=== PATIENT | male | born 1930 | race Caucasian/White ===

== ENCOUNTER 2019-07-27 12:42 | Inpatient (IN) | payer MEDICARE, OTHER ==
[~2019-07-27] VITALS: Ht 167.6 cm; Wt 58.5 kg
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
[2019-07-27] MEDS ORDERED: IV NS 0.9% 1,000 ML BAG IV ONE (13:00)
--- NOTE | 2019-07-27 13:20 | NUR ---
PT TAKEN TO RADIOLOGY VIA [facility]
[2019-07-27 13:21] LABS: HEMATOCRIT 34 % (39-51); HEMOGLOBIN 11.8 g/dL (13.5-17.5); RED BLOOD CELL COUNT(AUTO) 3.69 MIL/uL (4.5-6.0); WHITE BLOOD COUNT (AUTO) 7.8 K/uL (4.3-11.0)
[2019-07-27 13:22] LABS: LYMPHOCYTES % (AUTO) 4.7 % (20.0-44.0); MEAN CORPUSCULAR HGB CONC 34 g/dl (31.0-36.0); MEAN CORPUSCULAR VOLUME 93 fL (80-96); NEUTROPHILS % (AUTO) 85.2 % (43.0-81.0); PLATELET COUNT (AUTO) 95 /CMM (150-450)
[2019-07-27 13:23] LABS: BASOPHILS % (AUTO) 0.1 % (0.0-2.0); EOSINOPHILS % (AUTO) 0.1 % (0.0-6.0); MONOCYTES % (AUTO) 9.9 % (2.0-12.0)
[2019-07-27 13:28] LABS: CALCIUM, SERUM 9.2 mg/dL (8.5-10.1); CARBON DIOXIDE 24 mmol/L (21-32); CHLORIDE 106 mmol/L (98-107); CREATININE 1.8 mg/dL (0.6-1.3); GLUCOSE 103 mg/dL (74-106); POTASSIUM 4.1 mmol/L (3.5-5.1); SODIUM SERUM 141 mmol/L (136-145); UREA NITROGEN, BLOOD 40 mg/dL (7-18)
[2019-07-27 13:32] LABS: ALANINE AMINOTRANSFERASE 6 U/L (12-78); ALBUMIN 3.5 g/dL (3.4-5.0); ALKALINE PHOSPHATASE 63 U/L (46-116); ASPARTATE AMINOTRANSFERASE 15 U/L (15-37); BILIRUBIN,DIRECT 0.3 mg/dL (0.0-0.2); TOTAL PROTEIN, SERUM 6.4 g/dL (6.4-8.2)
[2019-07-27] MEDS ORDERED: MULT-447 PO (13:35)
[2019-07-27] MEDS ORDERED: ASPI-605 PO (13:35)
[2019-07-27 14:02] LABS: LYMPHOCYTES % (MANUAL) 3 % (16-48); MONOCYTES % (MANUAL) 9 % (0-11.0); NEUTROPHILS % (MANUAL) 88 (42-76)
--- NOTE | 2019-07-27 14:09 | NUR ---
CALLED FOR TELE BED
--- NOTE | 2019-07-27 14:30 | NUR ---
PT ATTEMPTED TO USE URINAL TO PROVIDE SPECIMEN, BUT UNSUCCESSFUL.
--- NOTE | 2019-07-27 15:20 | NUR ---
REPORT GIVEN TO JANET OTERO FOR 327-2 TELE
[2019-07-27 16:00] VITALS: BP 104/53
--- NOTE | 2019-07-27 16:00 | NUR ---
[facility]
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
--- NOTE | 2019-07-27 16:17 | NUR ---
DIRECTOR CARDIOVASCULAR NOTE INFORMED DR KING, ADMITTING HOSPITALIST THAT PT HAS ARRIVED AND PENDING ADMISSION ORDERS, AWAITING RESPONSE.
--- NOTE | 2019-07-27 17:03 | NUR ---
SALES PORTER NOTE PT REPORT THAT HE LIVES IN A 4 UNIT APARTMENT COMPLEX ALONE LOCATED AT [address] [facility] [place] [facility], HE STATES THAT HE DOES NOT HAVE ANY ROOM MATES OR PEOPLE THAT HE LIVES WITH. HE STATES HE HAS CHILDREN BUT THEY DO NOT LIVE IN [place] AND THAT ONE OF HIS CHILDREN RECENTLY . HE STATES HE DOES NOT KNOW THE PHONE NUMBER OF ANY FRIENDS OR FAMILY, HE DOES NOT HAVE A CELL PHONE, AND DOES NOT HAVE ANY PHONE NUMBER WRITTEN DOWN IN HIS BELONGINGS. SOCIAL SERVICE CONSULT ORDERED FOR FOLLOW UP.
--- NOTE | 2019-07-27 17:37 | NUR ---
MANAGER TRANSPORTATION PLANNING NOTE PT REFUSING FULL SKIN ASSESSMENT AT THIS TIME. ALLOWED THE NURSE TO VIEW ALL 4 EXTREMITIES AND UPPER TORSO, STATES "I DON'T HAVE ANY RASHES OR ANYTHING WRONG WITH ME". EDUCATION PROVIDED, PT STILL REFUSED FULL SKIN ASSESSMENT AT THIS TIME.
[2019-07-27] MEDS: IV NS 0.9% 1,000 ML IV PRN (17:57)
[2019-07-27] MEDS ORDERED: ONDANSETRON HCL/PF 4 MG/2 ML VIAL IVP PRN (18:00)
[2019-07-27] MEDS ORDERED: Z GUARD REMEDY 2 OZ OINT TP PRN (18:00)
[2019-07-27] MEDS ORDERED: ZOLPIDEM TARTRATE 5 MG TABLET PO PRN (18:00)
[2019-07-27] MEDS ORDERED: HYDROCODONE/APAP 5/325MG 1 EACH TABLET PO PRN (18:00)
[2019-07-27] MEDS ORDERED: MAG HYDROX/AL HYDROX/SIMETH 30 ML UDC PO PRN (18:00)
[2019-07-27] MEDS ORDERED: MAGNESIUM HYDROXIDE 30 ML UDC PO PRN (18:00)
[2019-07-27] MEDS ORDERED: ACETAMINOPHEN 325 MG TABLET PO PRN (18:00)
--- NOTE | 2019-07-27 18:28 | NUR ---
STOCK SHIPPER CLOSING NOTE PT IN BED, EATING DINNER, ALERT AND ORIENTED X1-2. DENIES CHEST PAIN, SOB, N/V, BREATHING IS EVEN AND UNLABORED ON 3L NC. PT ON WASH DRILLER WITH V PACING, HR 60'S. RIGHT AC #18G IS INFUSING NS @ 75ML/HR WITHOUT REDNESS OR SWELLING. ALL NEEDS ATTENDED TO. ASPIRATION PRECAUTIONS MAINTAINED. PT CONTINUES TO REFUSE FULL SKIN ASSESSMENT. BED IS LOCKED AND IN LOWEST POSITION, SIDE RAILS UP X2, BED ALARM ON, CALL LIGHT AND POSSESSIONS WITHIN REACH. WILL ENDORSE TO PROJECT MANAGER INTERIOR DESIGN NURSE FOR CONTINUITY OF CARE.
[2019-07-27] MEDS ORDERED: Z GUARD REMEDY 4 OZ OINT TP PRN (18:30)
--- NOTE | 2019-07-27 19:30 | NUR ---
RECEIVED PATIENT IN BED AWAKE. AO X 3, ABLE TO MAKE NEEDS KNOWN. NO ACUTE DISTRESS NOTED. DENIES ANY PAIN AT THIS TIME. IV SITE PATENT, INTACT; IVF INFUSING ORDERED. SAFETY REMINDERS GIVEN. ON LOW BED WITH BILATERAL UPPER SIDE RAILS UP. CALL RICHEY WITHIN EASY REACH. WILL CONTINUE TO MONITOR. Addendum: 07/28/19 at 0512 by ALICIA BUCHANAN RN TELE READING V PACING HR 70
[2019-07-27 20:00] VITALS: BP_SYST 146; BP_DIAS 70; BP_DIAS 73
[2019-07-28] VITALS: BP 105/60
[2019-07-28 04:00] VITALS: BP 113/56
--- NOTE | 2019-07-28 06:00 | NUR ---
PATIENT ASLEEP, EASILY AROUSABLE. RESPIRATIONS EVEN. NO SIGNS OF PAIN NOTED. IVF INFUSING ORDERED. NEEDS ATTENDED. SAFETY PRECAUTIONS AND COMFORT MEASURES IN PLACE. WILL GIVE REPORT TO DAY SHIFT FOR CONTINUITY OF CARE.
[2019-07-28 07:41] LABS: BASOPHILS % (AUTO) 0.1 % (0.0-2.0); EOSINOPHILS % (AUTO) 0.4 % (0.0-6.0); HEMATOCRIT 33 % (39-51); HEMOGLOBIN 11.4 g/dL (13.5-17.5); LYMPHOCYTES % (AUTO) 14.5 % (20.0-44.0); MEAN CORPUSCULAR HGB CONC 35 g/dl (31.0-36.0); MEAN CORPUSCULAR VOLUME 92 fL (80-96); MONOCYTES # (AUTO) 0.9 /CMM (0.1-1.30); MONOCYTES % (AUTO) 13.3 % (2.0-12.0); NEUTROPHILS # (AUTO) 4.8 /CMM (1.8-8.9); NEUTROPHILS % (AUTO) 71.7 % (43.0-81.0); PLATELET COUNT (AUTO) 86 /CMM (150-450); RED BLOOD CELL COUNT(AUTO) 3.54 MIL/uL (4.5-6.0); WHITE BLOOD COUNT (AUTO) 6.6 K/uL (4.3-11.0)
[2019-07-28 07:51] VITALS: BP 110/50
[2019-07-28 07:51] LABS: CALCIUM, SERUM 8.2 mg/dL (8.5-10.1); CARBON DIOXIDE 25 mmol/L (21-32); CHLORIDE 106 mmol/L (98-107); CREATININE 1.4 mg/dL (0.6-1.3); GLUCOSE 103 mg/dL (74-106); MAGNESIUM 2.1 mg/dL (1.8-2.4); PHOSPHORUS 2.5 mg/dL (2.5-4.9); SODIUM SERUM 139 mmol/L (136-145); UREA NITROGEN, BLOOD 36 mg/dL (7-18)
[2019-07-28 08:00] VITALS: BP 110/50
--- NOTE | 2019-07-28 08:10 | NUR ---
MS RN RECEIVED ON BED,AWAKE,ALERT,ORIENTED X1, CONFUSE NOT IN ANY FORM OF DISTRESS, RESPIRATIONS EVEN AND UNLABORED,NO SOB NOTED, LUNGS ARE DIMINISH, ABDOMEN SOFT,POSITIVE BOWEL SOUNDS, DENIES PAIN AT THIS TIME,ALL NEEDS ATTENDED.
--- NOTE | 2019-07-28 09:00 | NUR ---
MS GONZALES BREAKFAST SERVED,DUE MEDS GIVEN,TOLERATED WELL.
--- NOTE | 2019-07-28 09:00 | NUR ---
MS JANET WAS SEEN BY BETTY Ch/ ORDERS MADE AND CARRIED OUT.
[2019-07-28] MEDS: MULTIVIT W/MINERALS 1 TAB TABLET PO SCH (09:43)
[2019-07-28] MEDS: ASPIRIN EC 81 MG TABLET.DR PO SCH (09:43)
[2019-07-28 09:50] LABS: BAND % (MANUAL) 2 % (0.0-5.0); LYMPHOCYTES % (MANUAL) 13 % (16-48); MONOCYTES % (MANUAL) 14 % (0-11.0); NEUTROPHILS % (MANUAL) 71 (42-76)
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
--- NOTE | 2019-07-28 15:00 | NUR ---
MS RN ON BED, SLEEPING.
[2019-07-28 16:00] VITALS: BP 151/91
--- NOTE | 2019-07-28 16:30 | NUR ---
MS RN ON BED, VISITOR AT BEDSIDE.
--- NOTE | 2019-07-28 17:52 | NUR ---
MS RN ON BED, NO DISTRESS NOTED,ALL NEEDS ATTENDED.
[2019-07-28 20:00] VITALS: BP 130/67
--- NOTE | 2019-07-28 20:13 | NUR ---
RN OPENING NOTES RECEIVED PATIENT IN BED. AWAKE A/O X3. ON ROOM AIR. NO SIGNS OF RESPIRATORY DISTRESS. DENIES SOB. DENEIS PAIN AT THIS TIME. IV SITE RAC #18 INTACT AND PATENT. SAFETY PRECAUTIONS IMPLEMENTED; CALL LIGHT WITHIN REACH, BED LOWEST POSITION, BED LOCKED, SIDE RAILS UP X2. WILL CONTINUE TO MONITOR.
[2019-07-29] MEDS: IV NS 0.9% 1,000 ML IV PRN ×2 (00:35→15:21)
--- NOTE | 2019-07-29 06:59 | NUR ---
RN CLOSING NOTES PATIENT IS CURRENTLY ASLEEP, EASILY AROUSABLE. AFEBRILE. NO SIGNS OF RESPIRATORY DISTRESS. NO SHORTNESS OF BREATH NOTED. IVF INFUSING ORDERED. ALL NEEDS ATTENDED TO AT THIS TIME. SAFETY PRECAUTIONS IMPLEMENTED; CALL LIGHT WITHIN REACH, BED LOWEST POSITION, BED LOCKED, SIDE RAILS UP X2. WILL ENDORSE TO DAY NURSE FOR CONTINUITY OF CARE.
[2019-07-29 07:24] LABS: BASOPHILS % (AUTO) 0.4 % (0.0-2.0); EOSINOPHILS % (AUTO) 0.3 % (0.0-6.0); HEMATOCRIT 31 % (39-51); HEMOGLOBIN 11.1 g/dL (13.5-17.5); LYMPHOCYTES # (AUTO) 0.6 /CMM (0.8-4.8); LYMPHOCYTES % (AUTO) 10.9 % (20.0-44.0); MEAN CORPUSCULAR HGB CONC 36 g/dl (31.0-36.0); MEAN CORPUSCULAR VOLUME 91 fL (80-96); MONOCYTES # (AUTO) 0.8 /CMM (0.1-1.30); MONOCYTES % (AUTO) 13.4 % (2.0-12.0); NEUTROPHILS # (AUTO) 4.2 /CMM (1.8-8.9); PLATELET COUNT (AUTO) 93 /CMM (150-450); RED BLOOD CELL COUNT(AUTO) 3.44 MIL/uL (4.5-6.0); WHITE BLOOD COUNT (AUTO) 5.6 K/uL (4.3-11.0)
--- NOTE | 2019-07-29 07:30 | NUR ---
RN MS NOTES PT IN BED, AWAKE, ALERT AND ORIENTED, NO COMPLAINT OF PAIN OR ANY DISCOMFORT, RESPIRATIONS NORMAL, SITTER AT BEDSIDE, CALL LIGHT WITHIN REACH, IV FLUIDS INFUSING WELL, NO BEHAVIOR PROBLEM NOTED, ASSISTED WITH BREAKFAST, KEPT COMFORTABLE.
[2019-07-29 07:58] LABS: CALCIUM, SERUM 8.5 mg/dL (8.5-10.1); MAGNESIUM 2.1 mg/dL (1.8-2.4); PHOSPHORUS 2.7 mg/dL (2.5-4.9); POTASSIUM 3.7 mmol/L (3.5-5.1)
[2019-07-29 08:00] VITALS: BP 158/72
[2019-07-29] MEDS: MULTIVIT W/MINERALS 1 TAB TABLET PO SCH (09:12)
[2019-07-29] MEDS: ASPIRIN EC 81 MG TABLET.DR PO SCH (09:12)
[2019-07-29 09:56] LABS: LYMPHOCYTES % (MANUAL) 75 % (16-48); MONOCYTES % (MANUAL) 10 % (0-11.0); NEUTROPHILS % (MANUAL) 75 (42-76)
--- NOTE | 2019-07-29 13:00 | NUR ---
RN MS NOTES PT IN BED, AWAKE, ALERT, WITH EPISODES OF CONFUSION, NO COMPLAINT OF PAIN, NOT IN DISTRESS, SITTER AT BEDSIDE, IV FLUIDS INFUSING WELL, SEEN BY DR. FALL, KEPT CLEAN AND DRY, NEEDS ATTENDED.
[2019-07-29 16:00] VITALS: BP 145/63
[2019-07-29 17:55] LABS: APPEARANCE,URINE CLEAR (CLEAR); BILIRUBIN,URINE NEGATIVE (NEGATIVE); BLOOD, URINE TRACE Ery/uL (NEGATIVE); COLOR,URINE YELLOW (YELLOW); KETONES,URINE NEGATIVE (NEGATIVE); LEUKOCYTE ESTERASE ,URINE NEGATIVE (NEGATIVE); NITRITE, URINE NEGATIVE (NEGATIVE); PROTEIN,URINE 1+ mg/dl (NEGATIVE); UGLUCOSE NEGATIVE (NEGATIVE)
[2019-07-29 18:02] LABS: CREATININE, URINE 87.2 MG/DL (30.0-125.0); URINE TOTAL PROTEIN 67.1 mg/dL (0-11.9)
[2019-07-29 18:36] LABS: BACTERIA,URINE Few /HPF (None Seen); RBC,URINE 0-2 /HPF (0-2); SQUAMOUS EPITHELIAL CELL,UR Few /HPF (None Seen); WBC,URINE 0-2 /HPF (0-3)
[2019-07-29 18:37] LABS: EOSINOPHIL,URINE None Seen
[2019-07-29] MEDS ORDERED: FEE PK DOSING 1 MIN EA MC ONE (19:09)
--- NOTE | 2019-07-29 19:21 | NUR ---
RN MS NOTES PT IN BED, AWAKE, ALERT AND VERBALLY RESPONSIVE, NO COMPLAINT OF PAIN, NOT IN DISTRESS, ABLE TO AMBULATE TO THE BATHROOM WITH ASSISTANCE, IV FLUIDS INFUSING WELL, CALL LIGHT WITHIN REACH, PM CARE PROVIDED, ALL NEEDS ATTENDED.
--- NOTE | 2019-07-29 19:25 | NUR ---
RN MS OPENING NOTE BEDSIDE REPORT RECIEVED FROM MICHAEL GONZALES. PT IN BED, AWAKE, ALERT AND VERBALLY RESPONSIVE, NO COMPLAINT OF PAIN, NOT IN DISTRESS, ABLE TO AMBULATE TO THE BATHROOM WITH ASSISTANCE X 1, IV FLUIDS INFUSING WELL TO RFA#20 WITH NO S/S OF INFILTRATION. , CALL LIGHT WITHIN REACH. NELLY IRWIN AT THE BEDSIDE. PATIENT REORIENTED TO POC AND PLACE. WILL CONT TO MONITOR.
[2019-07-29] MEDS ORDERED: CEFTRIAXONE 1 G in IV D5W 50 ML IV SCH (20:00)
--- NOTE | 2019-07-29 21:00 | NUR ---
FAMILY MEMBER CALLED MELVIN BA PATIENTS SON IN LAW CALLED TO DISCUSS PATIENTS CONDITION. STATES THAT PATIENTS DAUGHTER MANGO BAZAN IS ON VACATION IN [place] FOR THE REST OF THE WEEK HE SAYS HE WILL PASS HER THE INFORMATION SO THAT SHE COULD CALL IN THE AM TO DISCUSS CASE WITH CASE MANAGEMENT. MELVIN BA LIVES IN [place] SO MAY NOT BE ABLE TO ASSIST IN CARE. MELVIN BA PHONE [phone]. MELVIN STATES PATIENT HAS BROTHER, BROTHER SAHIL BAZAN PHONE [phone] WHOM LIVES IN [place] AND MAY BE ABLE TO GET INVOLVED WITH PATIENTS CARE. WILL ENDORSE INFORMATION TO CASE MANAGEMENT SO FOLLOW UP CAN BE DONE TOMORROW.
[2019-07-29] MEDS: VANCOMYCIN 1 GM in IV D5W 250 ML IV SCH (21:56)
--- NOTE | 2019-07-30 06:00 | NUR ---
RN MS CLOSING NOTE PT IN BED, SEEN WITH EYES CLOSED IN NO APPARENT PAIN, OR IN DISTRESS, PATIENT HAD BOUTS OF CONFUSION BUT REORIENTED TO SURROUNDINGS LAS NIGHT AN REDIRECTEDED TO OTHER ACTIVITES TO MAINTAIN COOPERATION. IV FLUIDS INFUSING WELL TO RFA#20 WITH NO S/S OF INFILTRATION. , CALL LIGHT WITHIN REACH. NELLY IRWIN AT THE BEDSIDE.
[2019-07-30 07:11] LABS: BASOPHILS % (AUTO) 0.3 % (0.0-2.0); EOSINOPHILS % (AUTO) 0.5 % (0.0-6.0); HEMATOCRIT 36 % (39-51); HEMOGLOBIN 12.5 g/dL (13.5-17.5); LYMPHOCYTES # (AUTO) 0.7 /CMM (0.8-4.8); LYMPHOCYTES % (AUTO) 14.4 % (20.0-44.0); MEAN CORPUSCULAR HGB CONC 35 g/dl (31.0-36.0); MEAN CORPUSCULAR VOLUME 91 fL (80-96); MONOCYTES # (AUTO) 0.6 /CMM (0.1-1.30); NEUTROPHILS # (AUTO) 3.5 /CMM (1.8-8.9); NEUTROPHILS % (AUTO) 72.8 % (43.0-81.0); PLATELET COUNT (AUTO) 118 /CMM (150-450); RED BLOOD CELL COUNT(AUTO) 3.93 MIL/uL (4.5-6.0); WHITE BLOOD COUNT (AUTO) 4.9 K/uL (4.3-11.0)
--- NOTE | 2019-07-30 07:30 | NUR ---
RN MS NOTES PT IN BED, AWAKE, ALERT AND ORIENTED, NO COMPLAINT OF PAIN, NOT IN DISTRESS, ASSISTED TO BATHROOM NEEDED, SITTER AT BEDSIDE, IV FLUIDS INFUSING WELL, SAFETY PRECAUTIONS OBSERVED, NEEDS ATTENDED.
[2019-07-30 07:31] LABS: ALBUMIN 2.8 g/dL (3.4-5.0); BILIRUBIN,TOTAL 0.4 mg/dL (0.2-1.0); CALCIUM, SERUM 8.6 mg/dL (8.5-10.1); CREATININE 1.2 mg/dL (0.6-1.3); MAGNESIUM 2.1 mg/dL (1.8-2.4); POTASSIUM 3.7 mmol/L (3.5-5.1); TOTAL PROTEIN, SERUM 6.1 g/dL (6.4-8.2)
[2019-07-30] MEDS: MULTIVIT W/MINERALS 1 TAB TABLET PO SCH (09:12)
[2019-07-30] MEDS: ASPIRIN EC 81 MG TABLET.DR PO SCH (09:12)
[2019-07-30] MEDS ORDERED: LEVO500T75 PO (09:32)
--- NOTE | 2019-07-30 13:00 | NUR ---
RN MS NOTES PT IN BED, AWAKE, ALERT, WITH PERIODS OF CONFUSION, REORIENTED NECESSARY, SEEN AND EXAMINED BY DR. FALL, PLAN OF CARE DISCUSSED WITH PT AND FAMILY, VERBALIZED UNDERSTANDING, BED ALARM ON, ASSISTED PT TO BATHROOM NEEDED.
[2019-07-30] MEDS: VANCOMYCIN 1 GM in IV D5W 250 ML IV SCH (15:00)
[2019-07-30] MEDS ORDERED: LACTOBACILLUS RHAMNOSUS GG 1 EACH CAP.SPRINK PO SCH (17:00)
--- NOTE | 2019-07-30 17:24 | NUR ---
RN MS NOTES PT AWAKE, SITTING IN BED, NO COMPLAINT OF PAIN, NOT IN DISTRESS, DISCHARGE ORDER GIVEN BY DR. FALL, PT AND FAMILY INFORMED, PT TO BE DISCHARGED TO [facility], PT AND FAMILY IN AGREEMENT, DISCHARGE AND MEDICATION INSTRUCTIONS PROVIDED TO PT, VERBALIZED UNDERSTANDING, BELONGINGS ACCOUNTED FOR, PRESCRIPTION PROVIDED TO PT, LIMITED SKIN CHECK DONE, NOTED WITH DISCOLORATIONS TO BUE, PT REFUSED REST OF THE BODY ASSESSMENT, STATED THAT HE HAS NOTHING IN THERE, PICKED UP BY 2 AMBULANCE PERSONNEL, LEFT VIA GUERNEY IN STABLE CONDITION.
== END 2019-07-30 17:00 | DRG 922 ==
LOC: ER 13:13 → TELE 16:30 → MED 07-28 09:04
PROVIDERS: ADMIT Internal Medicine; ATTEND Nurse Practitioner Acute Care
DX: T67.0XXA Heatstroke and sunstroke, initial encounter (principal); N17.0 Acute kidney failure with tubular necrosis; G93.41 Metabolic encephalopathy; A41.9 Sepsis, unspecified organism; J15.9 Unspecified bacterial pneumonia; X30.XXXA Exposure to excessive natural heat, initial encounter; D64.9 Anemia, unspecified; Z79.82 Long term (current) use of aspirin; F03.90 Unspecified dementia, unspecified severity, without behavioral disturbance, psychotic disturbance, mood disturbance, and anxiety; D50.0 Iron deficiency anemia secondary to blood loss (chronic); E86.0 Dehydration; Z95.5 Presence of coronary angioplasty implant and graft; Z95.0 Presence of cardiac pacemaker; Z98.890 Other specified postprocedural states
CPT/HCPCS: 36415; 70450-TC; 71045-TC; 80048-TC; 80053-TC; 80076-TC; 81000-TC; 82570-TC; 83605-TC; 83735-TC; 84100-TC; 84155-TC; 84300-TC; 84484-TC; 85025-TC; 85730-TC; 86850-TC; 87040-TC; 87081-TC; 87086-TC; 97116-TC; 97530-TC; G0378; G0480; J0696; J3370; J7030; J7060